=== PATIENT | female | born 1995 | race Caucasian/White ===

== ENCOUNTER 2018-10-12 14:56 | Emergency (ER) | payer OTHER ==
[2018-10-12] MEDS ORDERED: HYOSCYAMINE SULFATE 0.125 MG TAB.SUBL SL ONE (15:25)
[2018-10-12] MEDS ORDERED: ONDANSETRON ODT 4 MG TAB ONE (15:25)
[2018-10-12 15:51] LABS: BASOPHILS % (AUTO) 0.4 % (0.0-5.0); EOSINOPHILS % (AUTO) 2.2 % (0.0-8.0); LYMPHOCYTES % (AUTO) 27.4 % (21.0-51.0); MEAN CORPUSCULAR HEMOGLOBIN 29.2 pg (27.0-33.0); MEAN CORPUSCULAR HGB CONC 34.4 g/dL (32.0-36.0); MEAN CORPUSCULAR VOLUME 84.9 fL (80-100); MONOCYTES % (AUTO) 13.6 % (3.0-13.0); NEUTROPHILS % (AUTO) 56.4 % (40.0-77.0); NUCLEATED RED BLOOD CELLS 0.1 % (0.0-0.19); PLATELET COUNT (AUTO) 191 K/uL (130-400); RED BLOOD CELL COUNT(AUTO) 5.07 MIL/uL (4.00-5.50); RED CELL DISTRIBUTION WIDTH 12.9 % (11.0-15.5); WHITE BLOOD COUNT (AUTO) 3.9 K/uL (4.8-10.8)
[2018-10-12 16:12] LABS: CREATININE 0.6 mg/dL (0.5-1.5); POTASSIUM 3.3 mmol/L (3.5-5.1)
[2018-10-12 16:23] LABS: ALBUMIN 3.7 g/dL (3.5-5.0); BILIRUBIN,TOTAL 0.8 mg/dL (0.2-1.0); TOTAL PROTEIN, SERUM 7.9 g/dL (6.0-8.3)
[2018-10-12] MEDS ORDERED: MAGNESIUM OXIDE 400 MG TABLET PO ONE (16:24)
[2018-10-12] MEDS ORDERED: POTASSIUM BICARB/CIT AC 25 MEQ TABLET.EFF ONE (16:24)
== END 2018-10-12 16:42 | disposition home or self-care (01) ==
LOC: EDH 14:56
DX: R11.2 Nausea with vomiting, unspecified (principal); R19.7 Diarrhea, unspecified; Z90.89 Acquired absence of other organs; Z98.890 Other specified postprocedural states; Z72.0 Tobacco use
CPT/HCPCS: 36415; 80053; 83690; 84702; 85025

== ENCOUNTER 2018-11-09 00:39 | Emergency (ER) | payer OTHER | END 2018-11-09 01:50 | disposition home or self-care (01) | LOC: EDH 00:39 | DX: B34.9 Viral infection, unspecified (principal); Z98.890 Other specified postprocedural states ==

== ENCOUNTER 2019-01-02 23:57 | Emergency (ER) | payer OTHER ==
[2019-01-03 00:55] LABS: BASOPHILS % (AUTO) 0.2 % (0.0-5.0); EOSINOPHILS % (AUTO) 0.8 % (0.0-8.0); HEMATOCRIT 42.3 % (36-48); LYMPHOCYTES % (AUTO) 9.3 % (21.0-51.0); MEAN CORPUSCULAR HEMOGLOBIN 29.3 pg (27.0-33.0); MEAN CORPUSCULAR HGB CONC 33.7 g/dL (32.0-36.0); MEAN CORPUSCULAR VOLUME 86.9 fL (80-100); MONOCYTES % (AUTO) 9.5 % (3.0-13.0); NEUTROPHILS % (AUTO) 80.2 % (40.0-77.0); PLATELET COUNT (AUTO) 199 K/uL (130-400); RED BLOOD CELL COUNT(AUTO) 4.87 MIL/uL (4.00-5.50); RED CELL DISTRIBUTION WIDTH 12.9 % (11.0-15.5); WHITE BLOOD COUNT (AUTO) 8.7 K/uL (4.8-10.8)
[2019-01-03 00:58] LABS: BILIRUBIN,URINE Negative (NEGATIVE); COLOR,URINE Yellow (YELLOW); GLUCOSE, URINE (UA) Negative (NEGATIVE); KETONES,URINE Trace mg/dL (NEGATIVE); LEUKOCYTE ESTERASE ,URINE Negative (NEGATIVE); NITRATE,URINE Negative (NEGATIVE); OCCULT BLOOD,URINE Negative (NEGATIVE); PH,URINE 8.5 (5.0-8.0); PROTEIN,URINE Negative (NEGATIVE)
[2019-01-03 00:59] LABS: APPEARANCE,URINE SLIGHTLY CLOUDY (CLEAR)
[2019-01-03 01:02] LABS: HCG,QUAL RESULT NEGATIVE (NEGATIVE)
[2019-01-03 01:05] LABS: CREATININE 0.7 mg/dL (0.5-1.5); POTASSIUM 3.4 mmol/L (3.5-5.1)
[2019-01-03 01:07] LABS: RAPID GROUP A STREP NEGATIVE (NEGATIVE)
[2019-01-03 01:07] LABS: BACTERIA,URINE Rare /HPF (None Seen); MUCUS,URINE Moderate LPF (None Seen); RBC,URINE 0-1 /HPF (0-1); SQUAMOUS EPITHELIAL CELL,UR Moderate /HPF (0-2)
[2019-01-03 01:10] LABS: BILIRUBIN,TOTAL 0.6 mg/dL (0.2-1.0); TOTAL PROTEIN, SERUM 8.1 g/dL (6.0-8.3)
[2019-01-03 01:15] LABS: AMPHET/METH SCREEN,URINE NEGATIVE (NEGATIVE); BARBITURATE SCREEN, URINE NEGATIVE (NEGATIVE); BENZODIAZEPINES SCREEN,URINE NEGATIVE (NEGATIVE); CANNABINOID SCREEN,URINE NEGATIVE (NEGATIVE); COCAINE SCREEN,URINE NEGATIVE (NEGATIVE); OPIATE SCREEN,URINE NEGATIVE (NEGATIVE); PHENCYCLIDINE SCREEN,URINE NEGATIVE (NEGATIVE)
[2019-01-03 01:20] LABS: INR 1.02 (0.85-1.15); PARTIAL THROMBOPLASTIN TIME 29.8 SEC (26.3-35.5); PROTHROMBIN TIME 10.7 SEC (9.6-11.6)
[2019-01-03] MEDS ORDERED: PROCHLORPERAZINE EDISYLATE 10 MG/2 ML VIAL ONE (01:24)
[2019-01-03] MEDS ORDERED: DiphenhydrAMINE HCL 50 MG/ML VIAL ONE (01:24)
[2019-01-03] MEDS ORDERED: KETOROLAC TROMETHAMINE 30MG/ML ONE (02:56)
== END 2019-01-03 03:33 | disposition home or self-care (01) ==
LOC: EDH 23:57
DX: E86.0 Dehydration (principal); R51 Headache; R50.9 Fever, unspecified; M54.2 Cervicalgia; Z98.890 Other specified postprocedural states
CPT/HCPCS: 36415; 70450; 80053; 80305; 81001; 81025; 82550; 83605; 84484; 85025; 85610; 85730; 87040; 87804 ×2; 87880; 93005; 96374; 96375; 99285; J0780; J1200; J1885